=== PATIENT | male | born 1960 | race Caucasian/White ===

== ENCOUNTER 2016-09-18 08:33 | Emergency (ER) | payer OTHER, SELFPAY ==
[2016-09-18] MEDS ORDERED: Diazepam 10 MG/2 ML SYRINGE ONE (09:08)
[2016-09-18] MEDS ORDERED: Ondansetron HCl/PF 4 MG/2 ML Vial ONE (09:09)
[2016-09-18 09:27] LABS: #Basophils 0.1 thou/uL (0.0-0.2); #Eosinphils 0.2 thou/uL (0.0-0.7); #Monocytes 0.4 thou/uL (0.11-0.59); #Neutrophils 4.2 thou/uL (1.40-6.50); %Eosinophils 2.5 % (0.0-10.0); %Lymphocytes 28.8 % (21.0-51.0); %Monocytes 6.4 % (0.0-10.0); %Neutrophils 61.2 % (42.0-75.0); Hemoglobin 13.8 g/dL (14.0-18.0); Mean Corpuscular HGB CONC 33.2 g/dL (32.0-36.0); Mean Corpuscular Hemoglobin 28.9 pg (27.0-31.0); Mean Corpuscular Volume 87.1 fl (80.0-94.0); Mean Platelet Volume 8.5 fL (7.4-10.4); Platelet Count 213 thou/uL (130-400); RBC Distribution Width 12.4 % (11.5-14.5); Red Blood Cell (RBC) Count 4.77 mill/uL (4.70-6.10); White Blood Cell (WBC) Count 6.8 thou/uL (4.8-10.8)
[2016-09-18 09:48] LABS: ALT (SGPT) 31 U/L (0-55); AST (SGOT) 21 U/L (5-34); Albumin 4.3 g/dL (3.5-5.0); Alkaline Phosphatase 87 U/L (40-150); Anion Gap 13 mmol/L (10-20); BUN (Urea Nitrogen) 25 mg/dL (8.4-25.7); Bilirubin, Total 0.8 mg/dL (0.2-1.2); Calc. Creatinine Clearance 0 mL/min (70-130); Calcium 9.5 mg/dL (7.8-10.44); Carbon Dioxide 25 mmol/L (22-29); Chloride 104 mmol/L (98-107); Estimated GFR-MDRD 76; Globulin 2.5 g/dL (2.4-3.5); Glucose 190 mg/dL (70-105); Potassium 4.4 mmol/L (3.5-5.1); Protein, Total 6.8 g/dL (6.0-8.3); Sodium 138 mmol/L (136-145)
--- NOTE | 2016-09-18 10:19 | CT ---
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 Large bruise of the right hip. Pain i s worsening. COMPARISON: None. FINDINGS: There is a [place] lesion of the gluteus and IT band fascia measuring 3.6 x 7.5 x approximate ly 10 cm (trans x AP x cc). Lung bases are clear. Lung bases are clear. There are fractures of th e right L1-L2 transverse processes. There is also a fracture of the right posterior 11th and 10th r ibs without displacement. No other acute osseous injury. Numerous calcified granulomas of the mediastinal lymph nodes. No solid organ injury of the abdomen and pelvis. Spleen, liver, gallbladder, kidneys, and adrenal g lands are unremarkable. Mild diverticular disease of the sigmoid colon without active inflammation. Small fat-containing in guinal hernias. The appendix is visualized and is normal. Soft tissue contusion of the right gluteus musculature. No underlying pelvic fracture. IMPRESSION: 1. Nondisplaced fractures of the right posterior 10th and 11th ribs as well as the right L1-L2 wiley sverse processes. No significant hematoma of the iliopsoas musculature. 2. [place] fascia degloving injury of the right gluteus/IT band fascia measuring 3.6 x 7.5 x 10 cm (trans x AP x cc). 3. No underlying pelvic fracture. 4. Possible nondisplaced fracture of the inferior sternum. Correlation with focal tenderness is re commended. Dr. Calhoun notified of findings via telephone at 10:00 a.m. CODE CR POS: [facility]
[2016-09-18] MEDS ORDERED: Iopamidol 370 76% 100 ML VIAL ONE (10:43)
[2016-09-18 11:30] LABS: Bilirubin Negative (Negative); Blood, Urine Negative (Negative); Clarity Clear (Clear); Glucose, Urine (Dipstick) Negative (Negative); Leukocyte Negative (Negative); Nitrite Negative (Negative); Protein, Urine (Dipstick) Trace mg/dL (Neg-Trace); Specific Gravity, Urine 1.015 (1.005-1.030); pH, Urine 6.5 (5.0-9.0)
== END 2016-09-18 11:48 | disposition home or self-care (01) ==
LOC: MADERS 08:33
DX: S30.0XXA Contusion of lower back and pelvis, initial encounter (principal); S20.221A Contusion of right back wall of thorax, initial encounter; S70.01XA Contusion of right hip, initial encounter; I10 Essential (primary) hypertension; E11.9 Type 2 diabetes mellitus without complications; E78.00 Pure hypercholesterolemia, unspecified; F17.220 Nicotine dependence, chewing tobacco, uncomplicated; Z79.84 Long term (current) use of oral hypoglycemic drugs; Z79.82 Long term (current) use of aspirin; Z79.891 Long term (current) use of opiate analgesic; Z79.899 Other long term (current) drug therapy; W19.XXXA Unspecified fall, initial encounter
CPT/HCPCS: 36415; 74177; 80053; 81003; 85025; 87086; 96374; 96375; J2270; J2405; J3360